=== PATIENT | male | born 1990 | race Caucasian/White ===

== ENCOUNTER 2017-02-04 11:56 | Emergency (ER) | payer SELFPAY ==
[~2017-02-04] VITALS: Ht 185.4 cm; Wt 73.5 kg
[~2017-02-04 11:56] MED LIST: ALPR0.5T PO
[2017-02-04 12:05] VITALS: BP 132/81
--- NOTE | 2017-02-04 12:31 | RAD ---
Indication: Nail through second digit. Technique: 2 views of the right second digit including an AP view of the hand are submitted for review. Findings: There is a second middle phalanx fracture which extends from the proximal articular surface to the distal articular surface. This appears acute and traumatic. The second middle phalanx essentially has been split into 2 equal sized fragments. No radiopaque foreign body is identified. No additional fracture is identified and there is no dislocation. There is soft tissue swelling. Impression: Acute traumatic fracture of the second middle phalanx.
[2017-02-04] MEDS ORDERED: TETANUS AND DIPHTHERIA TOX/PF 0.5 ML VIAL. VAX IM ONE (13:00)
[2017-02-04] MEDS ORDERED: cefTRIAXone IM 1 GM VIAL IM ONE (13:00)
--- NOTE | 2017-02-04 13:02 | PHYS DOC ---
Past History Past Medical History: Depression Past Surgical History: No Surgical History Smoking: Cigarettes, Greater than 1 pack/day Alcohol Use: None Drug Use: None Adult General Chief Complaint Chief Complaint: FINGER INJURY HPI HPI 26-year-old right-handed male patient states he punched his left index finger with a nail gun 6 days ago and was able to remove the nail by himself. Patient complaining of pain and increasing swelling of his finger and states he is not able to bend his finger. Patient complaining of drainage of some pus from his finger yesterday but denies fever and chills and focal neurodeficit. Patient is not up-to-date with his tetanus immunization. Review of Systems Review of Systems Constitutional: Denies fever or chills [] Eyes: Denies change in visual acuity, redness, or eye pain [] HENT: Denies nasal congestion or sore throat [] Respiratory: Denies cough or shortness of breath [] Cardiovascular: No additional information not addressed in HPI [] GI: Denies abdominal pain, nausea, vomiting, bloody stools or diarrhea [] : Denies dysuria or hematuria [] Musculoskeletal: Denies back pain, reports joint pain [] Integument: Denies rash or skin lesions [] Neurologic: Denies headache, focal weakness or sensory changes [] Endocrine: Denies polyuria or polydipsia [] All other systems were reviewed and found to be within normal limits, except as documented in this note. Current Medications Current Medications Current Medications Medications (Trade) Dose Ordered Sig/Latanya Start Time Stop Time Status Last Admin Dose Admin Ceftriaxone Sodium (Rocephin Im) 1 gm 1X ONCE 02/04/17 13:00 02/04/17 13:01 02/04/17 12:51 1 GM Tetanus/ Diphtheria Toxoids Adsorbed (Tenivac Vial) 0.5 ml ONCE ONCE 02/04/17 13:00 02/04/17 13:01 02/04/17 12:50 0.5 ML Allergies Allergies Allergies Coded Allergies Type Severity Reaction Last Updated Verified No Known Drug Allergies 08/15/14 No Physical Exam Physical Exam Constitutional: Well developed, well nourished,mild distress, non-toxic appearance. [] HENT: Normocephalic, atraumatic, bilateral external ears normal, oropharynx moist, no oral exudates, nose normal. [] Eyes: PERRLA, EOMI, conjunctiva normal, no discharge. [] Neck: Normal range of motion, no tenderness, supple, no stridor. [] Cardiovascular:Heart rate regular rhythm, no murmur [] Lungs & Thorax: Bilateral breath sounds clear to auscultation [] Skin: Warm, dry, no erythema, no rash. [] Extremities: Left index finger with edema and mild erythema and puncture wound of dorsal and volar side of medial phalanx with moderate tenderness and limited range of motion Neurologic: Alert and oriented X 3, normal motor function, normal sensory function, no focal deficits noted. [] Psychologic: Affect normal, judgement normal, mood normal. [] Current Patient Data Vital Signs Vital Signs Date Time Temp Pulse Resp B/P (MAP) Pulse Ox O2 Delivery O2 Flow Rate FiO2 02/04/17 12:05 97.7 87 16 100 Room Air EKG EKG [] Radiology/Procedures Radiology/Procedures [] Course & Med Decision Making Course & Med Decision Making Pertinent Imaging studies reviewed. (See chart for details) Evaluation of patient in ER showed 26-year-old male patient with injury to left index finger with fracture of middle phalanx. Patient had infected puncture wound also without sign of abscess. Patient treated with tetanus, Rocephin and [place] in ER and instructed to follow up with on-call orthopedic physician Dr. Diaz in 1 or 2 days. Aluminum/foam finger splint was applied ER nurse. Patient was instructed to quit smoking. Dragon Disclaimer Dragon Disclaimer This electronic medical record was generated, in whole or in part, using a voice recognition dictation system. Departure Departure: Impression: Primary Impression: Open fracture of phalanx of finger of left hand Additional Impressions: Tobacco abuse Tobacco abuse counseling Puncture wound Disposition: HOME, SELF-CARE (At 1209) Condition: IMPROVED Referrals: PCP,NO (PCP) Patient Instructions: Finger Fracture Additional Instructions: Follow-up with Dr. Diaz at [facility] in 1 or 2 days, call [phone] to make an appointment Elevate your left hand Quit smoking Scripts Hydrocodone Bit/Acetaminophen (NORCO 5-325 TABLET) 1 Each Tablet 1 TAB PO PRN Q6HRS Y for PAIN, #20 TAB 0 Refills Prov: KRISTIAN MCCORMACK MD 12/13/17 Ibuprofen (IBUPROFEN) 800 Mg Tablet 1 TAB PO TID, #30 TAB Prov: KRISTIAN MCCORMACK MD 02/04/17 Cephalexin (KEFLEX) 500 Mg Capsule 1 CAP PO TID, #21 CAP Prov: KRISTIAN MCCORMACK MD 02/04/17 Problem Qualifiers KRISTIAN MCCORMACK MD Feb 04, 2017 13:02
[2017-02-04] MEDS ORDERED: IBUP800T19 PO (13:12)
[2017-02-04] MEDS ORDERED: HYDR-971 PO (13:12)
[2017-02-04] MEDS ORDERED: CEPH-264 PO (13:12)
[2017-02-04] MEDS ORDERED: HYDROcodone/APAP 5/325MG 1 TAB TABLET PO ONE (13:15)
== END 2017-02-04 13:20 | disposition home or self-care (01) ==
LOC: ER 11:56
DX: S62.621A Displaced fracture of middle phalanx of left index finger, initial encounter for closed fracture (principal); F17.210 Nicotine dependence, cigarettes, uncomplicated; F32.9 Major depressive disorder, single episode, unspecified; W29.4XXA Contact with nail gun, initial encounter; Y93.89 Activity, other specified; Y99.8 Other external cause status; Y92.89 Other specified places as the place of occurrence of the external cause
CPT/HCPCS: 29130; 73140; 90471; 90714; 96372; 99284; J0696